=== PATIENT | female | born 1960 | race Caucasian/White ===

== ENCOUNTER 2019-01-17 12:50 | Outpatient (RCR) | payer OTHER ==
--- NOTE | 2018-12-23 13:51 | RADONC ---
RADIATION ONCOLOGY PROGRESS NOTE DATE: 12/23/2018 CHART NUMBER: [id number] PROGRESS NOTE: Mrs. 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 Her current dose is 2000 centigray of an anticipated 6000 centigray and treatments are going well. REVIEW OF SYSTEMS: She denies any nausea, vomiting, coughing, sputum production or hemoptysis. She does have a great deal of postnasal drip but also denies any odynophagia or dysphagia. Her energy level is satisfactory and she is able to maintain many day-to-day activities without any alteration of her lifestyle. Skin irritation is denied. EXAMINATION FINDINGS: The skin within the irradiated volume shows neither erythema nor desquamation. Lymphatics: No palpable peripheral lymphadenopathy is appreciated. The remainder of the physical examination is unchanged. IMPRESSION: Tolerating therapy well. PLAN: Treatments to continue.
--- NOTE | 2018-12-31 07:00 | RADONC ---
RADIATION ONCOLOGY PROGRESS NOTE DATE: 12/30/2018 CHART #: [id number] Ms. Link is presently at a dose of 3000 cGy to her right hilum and is tolerating treatments quite well at this point with no complaints related to her radiation therapy. She is having no increased difficulty swallowing or breathing. REVIEW OF SYSTEMS: The patient's review of systems is noncontributory. Denies nausea, vomiting, fevers, chills, night sweats, diplopia, headaches, anxiety or depression, anorexia, weight loss, visual disturbances, chest pain, urinary or bowel difficulties, bone pain, or neurological problems. PHYSICAL EXAMINATION: The patient's skin is in good condition with no evidence of moist or dry desquamation. The remainder of her physical exam remains unchanged. Ms. Link is tolerating treatments quite well and radiation will continue as scheduled.
--- NOTE | 2019-01-07 07:36 | RADONC ---
RADIATION ONCOLOGY PROGRESS NOTE DATE: 01/06/2019 CHART NUMBER: [id number] Ms. Link is presently at a dose of 3800 cGy to her right hilum and is tolerating treatments quite well at this point with no complaints related to her radiation therapy. She is having no increased difficulty swallowing or breathing. The patient's review of systems is noncontributory. She denies nausea, vomiting, fevers, chills, night sweats, diplopia, headaches, anxiety or depression, anorexia, weight loss, visual disturbances, chest pain, urinary or bowel difficulties, bone pain, or neurological problems. PHYSICAL EXAMINATION: The patient's skin is in good condition with no evidence of moist or dry desquamation. The remainder of her physical exam remains unchanged. Ms. Link is tolerating treatments quite well and radiation will continue as scheduled.
--- NOTE | 2019-01-14 11:40 | RADONC ---
RADIATION ONCOLOGY PROGRESS NOTE: DATE OF SERVICE: 01/13/2019 CHART NUMBER: [id number] Mrs. 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 Treatments are going relatively well and she denies major issues related to her disease or to her treatments. REVIEW OF SYSTEMS: She specifically denies any nausea, vomiting, coughing, sputum production or hemoptysis. She does experience some dysphagia with odynophagia most likely secondary to radiation related esophageal irritation. Her energy level is such that she is able to maintain most day-to-day activities. She denies any skin irritation. The remainder of the review of systems is unchanged. EXAMINATION FINDINGS: The skin within the irradiated was normal. There is no palpable, peripheral lymphadenpathy. Lungs appear to be clear. The remainder of the physical examination is unchanged. IMPRESSION: Tolerating therapy well. PLAN: Treatments to continue.
[~2019-01-17 12:50] MED LIST: ALBU83IN INH; BENZ200C70 PO; CEFT1INJ4 IV; FLUTISP; LOSA100T50 PO; MAGICMW SSP; METR0.753 TOP; METR0.7533 TOP; MSIR30TA PO; NICO14DI3 TOP; NICO21DI6 TOP; QVAR80AE8 INH; SENN-52 PO; SYNT25TA PO; ZYRTTAB8 PO
== END 2019-01-19 ==
LOC: M ONCR 12:50 → MERGE 12:50
PROVIDERS: ATTEND Radiology Radiation Oncology
DX: C34.90 Malignant neoplasm of unspecified part of unspecified bronchus or lung (principal)

== ENCOUNTER 2019-01-22 12:53 | Outpatient (RCR) | payer OTHER ==
--- NOTE | 2019-01-20 17:17 | RADONC ---
RADIATION ONCOLOGY PROGRESS NOTE DATE OF SERVICE: 01/20/2019 CHART NUMBER: [id number] Mrs. Link with a diagnosis of a small cell carcinoma involving the right lung with brain metastasis is currently receiving local regional radiotherapy to the lung and she has achieved a dose thus far of 5600 cGy of an anticipated 6000 cGy. She has only two more treatments to go to complete her entire prescribed dose of radiotherapy. She denies any symptoms related to her disease or major symptoms related to her treatment. REVIEW OF SYSTEMS: She specifically denies any nausea, vomiting, coughing, sputum production or hemoptysis. Her energy level is excellent. She is able to maintain many day-to-day activities without any significant alteration of her lifestyle. Again she does experience some minimal dysphagia and odynophagia most likely secondary to radiotherapy but this has not been a major issue for her. She is able to maintain most day-to-day activities as per usual. Skin irritation is acknowledged but it is not painful. The remainder of the review of systems is unchanged. EXAMINATION FINDINGS: The skin within the irradiated volume looks normal. There is no palpable peripheral lymphadenopathy. Lungs are clear. The remainder of the physical examination is unchanged. IMPRESSION: Tolerating therapy well. PLAN: Treatments to continue. MTDD
--- NOTE | 2019-01-24 08:33 | RADONC ---
RADIATION ONCOLOGY TREATMENT SUMMARY DATE: 01/22/2019. CHART NUMBER: [id number] DIAGNOSIS: Small cell carcinoma of the right lung with evidence of brain metastasis. STAGE: Extensive [id number] (brain). Group stage IV. ECOG PERFORMANCE STATUS: 0. PLAN OF RADIOTHERAPY: The patient underwent local regional radiotherapy to the primary lung tumor for local regional control. DATE RADIOTHERAPY STARTED: 12/09/2018 DATE RADIOTHERAPY COMPLETED: 01/22/2019 DOSE: The patient received a total of 6000 cGy administered in 30 fractions over 44 elapsed days. Prior to treatment delivery localization was accomplished upon our CT simulator where upon treatment portals were defined by the use of multiple leaf collimators. A 15 MV photon beam was employed for treatment delivery via BENGALI / RPO treatment portals. STATUS OF TUMOR: The patient's tumor neither showed evidence of local regional growth nor further distant metastatic spread during her course of radiotherapy. TOLERANCE: In general, treatments were relatively well tolerated and she denied any significant nausea, vomiting, exacerbation of coughing, sputum production or hemoptysis. She also denied significant odynophagia or dysphagia. DISPOSITION: Return to clinic in 1 month for post radiotherapy followup visit and skin check and she was advised to return to her referring physicians as per their directions and instructions. Thank you for allowing us the opportunity of participation in the management of this very leandro patient. Most sincerely, Thanh Fagan MD cc: DO Radha Hernández MD
[2019-02-11] MEDS ORDERED: AZEL1SPR3 NARES (13:17)
[2019-07-03] MEDS ORDERED: OXYB5TAB10 PO (13:26)
== END 2019-02-19 ==
LOC: M ONCR 12:53
PROVIDERS: ATTEND Radiology Radiation Oncology
DX: C34.90 Malignant neoplasm of unspecified part of unspecified bronchus or lung (principal)

== ENCOUNTER → 2019-02-11 | Outpatient (REF) | payer OTHER ==
[~2019-02-11] MED LIST changes: +AZEL1SPR3 NARES
[2019-02-11 14:33] LABS: HEMOGLOBIN A1c 6.1 %
[2019-02-11 14:50] LABS: ALBUMIN 3.4 GM/DL (3.2-5.2); ALT/SGPT 21 U/L (12-78); BILIRUBIN,TOTAL 0.3 MG/DL (0.2-1.0); BLOOD UREA NITROGEN 7 MG/DL (7-18); CALCIUM LEVEL 8.8 MG/DL (8.5-10.1); CARBON DIOXIDE LEVEL 30 MEQ/L (21-32); CHLORIDE LEVEL 101 MEQ/L (98-107); CREATININE FOR GFR 0.76 MG/DL (0.55-1.30); GLOMERULAR FILTRATION RATE > 60.0 (>51); GLUCOSE, FASTING 105 MG/DL (70-100); POTASSIUM SERUM 3.9 MEQ/L (3.5-5.1); SODIUM LEVEL 136 MEQ/L (136-145); TOTAL PROTEIN 6.7 GM/DL (6.4-8.2)
== END ==
LOC: M LAB REF 13:19
PROVIDERS: ATTEND Family Medicine
DX: E11.9 Type 2 diabetes mellitus without complications (principal)

== ENCOUNTER → 2019-02-18 | Outpatient (CLI) | payer OTHER ==
[~2019-02-18] MED LIST changes: +PROHANCE 279.3MG/ML 15ML VIAL (A9576) As Ordered ONE
--- NOTE | 2019-02-18 19:33 | REPVR ---
EXAM: MR Head Without and With Contrast EXAM DATE/TIME: 02/18/2019 6:12 PM CLINICAL HISTORY: 58 years old, female; Walking, difficulty; Prior surgery; Surgery date: 6+ months; Surgery type: Tumor removal; Patient HX: Fu from radiation patient has a HX of brain tumor/lung CA verigo unsteady balance; Additional info: Vertigo, unsteady gait TECHNIQUE: Imaging protocol: MR of the head without and with intravenous contrast. Contrast material: PROHANCE;Contrast volume: 14 ml;Contrast route: IV; COMPARISON: MRI-Brain W/O FOLL BY WITH 09/27/2018 1:24 PM FINDINGS: Brain: No acute infarct identified on the diffusion weighted imaging. There is cerebellar vermian encephalomalacia, as before. A new, small area of vasogenic edema in the lateral left cerebellar hemisphere adjacent to a 0.8 x 0.5 cm enhancing metastasis. There is an additional focal metastasis in the medial left cerebellum, image 1 series 601. No posterior fossa mass effect. A new metastasis in the posteroinferior right thalamus measuring 1.4 x 1.2 cm. A new metastasis in the superior aspect of the right thalamus measuring 1.2 x 1.1 cm. These metastases are associated with moderate adjacent vasogenic edema which extends into the capsular, subinsular and temporal lobe white matter. There is a new enhancing left frontal cortical metastasis measuring 1.0 x 0.8 cm. Periventricular T2 hyperintensity probably reflects postradiation change. A small area of right frontal lobe parenchymal gliosis related to prior ventriculostomy. There is an old right frontal calvarial yolanda hole. Ventricles: The ventricles appear mildly larger in the interval in keeping with central volume loss. Vasogenic edema associated with the posterior inferior right thalamic lesion partially effaces the temporal horn of the right lateral ventricle. Bones/joints: Prior occipital craniotomy. Soft tissues: Unremarkable. Sinuses: Normal as visualized. No acute sinusitis. Mastoid air cells: Patchy bilateral mastoid effusions probably related to radiation therapy. Orbits: Unremarkable. IMPRESSION: 1. Several new supratentorial and infratentorial brain parenchymal metastases since the prior study. 2. No evidence of acute infarct. Electronically signed by: Radha Carrizales On 02/18/2019 19:33:14 PM
== END ==
LOC: M RAD 15:51
PROVIDERS: ATTEND Internal Medicine Hematology & Oncology
DX: R42 Dizziness and giddiness (principal)
CPT/HCPCS: 70553; A9576

== ENCOUNTER → 2019-02-24 | Outpatient (CLI) | payer OTHER ==
[~2019-02-24] MED LIST changes: -PROHANCE 279.3MG/ML 15ML VIAL (A9576) As Ordered ONE
--- NOTE | 2019-03-06 12:26 | REP ---
REASON FOR EXAM: Right hilar mass seen on ultrasound exam of 05/12/2018 from [facility], which has been reviewed. Original exam date 02/24/2019, however, the prior examination for comparison has just been made available for review, which has delayed interpretation of our exam. CONTRAST: 100 mL Isovue 370. There are no other prior examinations for comparison. There is right hilar adenopathy, which measures approximately 2.6 x 1.3 x 1.5 cm. This has decreased in size compared to the prior exam. No mediastinal or left hilar adenopathy has developed. There are no pleural or pericardial effusions. The imaged upper abdomen is within normal limits and unchanged. The imaged osseous structures are stable and intact. Evaluation of the lung long show scattered asymmetric densities in the right upper lobe representing a change from the prior exam. There is a 4 mm size nodule in the lateral basal segment of the left lower lobe at the CP angle, which is unchanged. There are no additional abnormal nodules, masses, or opacities. IMPRESSION: 1. Right hilar adenopathy has improved as described above. By my measurements, this area previously measured 3.2 x 3.2 x 1.8 cm. 2. Abnormal asymmetric right upper lobe densities scattered throughout the right upper lobe and representing a change from the prior exam. The exact etiology is uncertain. This needs to be correlated clinically with appropriate followup. Neoplastic versus infectious versus other etiologies. Electronically Signed by Regis Alvarenga DO 03/06/2019 03:41 P
== END ==
LOC: M RAD 07:55
PROVIDERS: ATTEND Internal Medicine Hematology & Oncology
DX: C34.90 Malignant neoplasm of unspecified part of unspecified bronchus or lung (principal); R59.9 Enlarged lymph nodes, unspecified; R91.8 Other nonspecific abnormal finding of lung field

== ENCOUNTER → 2019-03-06 | Outpatient (CLI) | payer OTHER ==
--- NOTE | 2019-03-11 09:16 | RADONC ---
RADIATION ONCOLOGY FOLLOWUP NOTE DATE OF SERVICE: 03/06/2019 CHART NUMBER: [id number]. FOLLOWUP NOTE: Mrs. Link completed local regional radiotherapy for her right lung tumor. The treatments were completed on 01/22/2019. As you are aware, she also has brain metastasis. It is my understanding that she will be seeing the physicians at the [facility] for evaluation of stereotactic radiosurgery to approximately five lesions in the brain area. She has no other significant symptoms other than local regional weakness, especially on the right side of her body, and she ambulates with the aid of a walker. She wishes to get a scooter for more long-term walks and long-distance walks, such as to the store. She has a few respiratory problems with an occasional cough but does not have any significant shortness of breath. A recent CT scan ordered by Dr. Jj revealed the right hilar lymphadenopathy to have improved. The adenopathy previously measured 3.2 x 3.2 x 1.8 cm and now measures 2.6 x 1.3 x 1.5 cm. There are abnormal asymmetric right upper lobe densities scattered throughout the right upper lobe representing a change from the prior examination, but the etiology of these is uncertain and needs to be correlated with clinical performance, as well as appropriate radiographic followup. She will, as stated, be going to [place] for stereotactic radiosurgery of the brain, and she is feels that a PET scan will be ordered, and Dr. Jj has indicated to her that the PET scan will be ordered in the near future. REVIEW OF SYSTEMS: She denies any nausea, vomiting, significant productive cough, or chest pain. Her energy level is markedly diminished, and she has problems with gait secondary to her brain metastasis. The remainder of the review of systems is basically unchanged. EXAMINATION FINDINGS: The patient is ambulating with the aid of a walker. She is unsteady with regard to her gait and has an inclination to ask her physicians for a scooter for more lengthy walks, as she feels this would help her a great deal. She has no other on major signs, such as a skin reaction or desquamation. Her lungs are clear to auscultation and percussion. Heart: Regular without murmurs. The remainder of the physical examination is unchanged. Neurologically, she is still quite unsteady with regard to her gait with weakness more on the right than left upper and lower extremities. She also has lack of or poor coordination. IMPRESSION: The patient may have evidence of progressive disease and will be having a consultation and treatments in [place], [place], for her brain metastasis utilizing stereotactic radiosurgery. PLAN: We would like to see her back when she returns from [place], and she was instructed to return to her referring physicians as per their directions and instructions. cc: DO Radha Hernández MD [facility] HOSPITALAbigail
== END ==
LOC: M ONCR 12:49
PROVIDERS: ATTEND Radiology Radiation Oncology
DX: C34.91 Malignant neoplasm of unspecified part of right bronchus or lung (principal); C79.31 Secondary malignant neoplasm of brain

== ENCOUNTER → 2019-06-05 | Outpatient (CLI) | payer OTHER ==
[~2019-06-05] MED LIST changes: +GASTROGRAFIN SOLUTION 30ML (Q9963) As Ordered ONE; +ISOVUE-370 76% 100ML VIAL (Q9967) As Ordered ONE
--- NOTE | 2019-06-06 01:25 | REP ---
Clinical: Small cell lung cancer. Restaging. Technique: Axial contrast enhanced images from the thoracic inlet to the upper abdomen with coronal and sagittal re-formations using 100 ml Isovue 370 intravenous contrast material. Comparison: 02/24/2019. Findings: New areas of consolidation identified in the posterior right upper lobe measuring 17 mm (image 27), and scattered within the right lower lobe measuring up to 22 mm are now identified along. A new small subpleural area of density in the anterior left upper lobe (image 38) is also identified. Areas of more subtle ill-defined patchy air space disease within the anterobasilar right upper lobe appears slightly improved. No effusion. No pneumothorax. Subcarinal and right hilar lymph nodes are stable and measure up to approximately 16 mm. Thoracic aorta and pulmonary vasculature are stable/within normal limits. No cardiomegaly. Small pericardial effusion is now identified. Musculoskeletal structures are intact without focal osseous abnormality. Impression: 1. New areas of consolidation identified primarily in the right hemithorax along with small subpleural density in the anterior left upper lobe. Findings are nonspecific and would include scattered pneumonia as well as malignancy/metastatic disease. Electronically Signed by Mannie Goldsmith MD 06/06/2019 01:16 A
--- NOTE | 2019-06-06 01:37 | REP ---
Clinical: Small cell lung cancer. Restaging. Technique: Axial contrast enhanced images from the lung bases to the pubic symphysis using a oral (per protocol) and 100 ml Isovue 370 intravenous contrast material with delayed images of the abdomen as well as coronal and sagittal re-formations. Comparison: None. Findings: Liver, spleen, pancreas, gallbladder, right adrenal gland and bilateral kidneys and appear normal. The enteric system is without obstruction or acute inflammatory process. Normal terminal ileum and appendix are identified in the right lower quadrant. Pelvis demonstrates normal bladder and age-appropriate uterus/adnexa. No ascites. No adenopathy. No obvious mass lesion. Atherosclerotic changes to the aorta and vasculature without aneurysm or dissection. Musculoskeletal structures demonstrate age-related changes without focal abnormality. Impression: 1. Small subtle nodularity to the left adrenal gland represents a relatively new finding when compared to images from chest CT dated 05/12/2018. Findings require correlation as early metastatic focus cannot be excluded. 2. No further acute abdominopelvic pathology appreciated. Electronically Signed by Mannie Goldsmith MD 06/06/2019 01:28 A
== END ==
LOC: M RAD 15:13
DX: C34.91 Malignant neoplasm of unspecified part of right bronchus or lung (principal)
CPT/HCPCS: 71260; 74177; Q9963; Q9967

== ENCOUNTER → 2019-07-03 | Outpatient (CLI) | payer OTHER ==
[~2019-07-03] MED LIST changes: -GASTROGRAFIN SOLUTION 30ML (Q9963) As Ordered ONE; -ISOVUE-370 76% 100ML VIAL (Q9967) As Ordered ONE; +OXYB5TAB10 PO
--- NOTE | 2019-07-04 08:06 | RADONC ---
RADIATION ONCOLOGY CONSULTATION NOTE: DATE: 07/03/2019 CHART NUMBER: [id number] DIAGNOSIS: Small cell carcinoma. STAGE: Widely metastatic with recurrent brain metastasis. ECOG PERFORMANCE STATUS: 1 Ms. Link is a very pleasant 59-year-old white female who is well-known to our department and has had a history of multiple recurrent brain tumors. She is now presenting once again for consideration of a new course of whole brain radiation therapy for what appears to be two small new lesions, one in the frontal lobe and one in the right posterior cerebellum. HISTORY OF PRESENT ILLNESS: The patient's history of her brain lesions begin when she developed significant headaches and nausea while in [place]. She presented to an emergency room there and was discovered to have a brain mass in the cerebellum. She was referred to a local neurosurgeon who performed a craniotomy and excise the metastatic lesion which was quite large at that time. Her craniotomy was done on 05/14/2018 and pathology revealed metastatic small cell lung carcinoma. The patient subsequently underwent whole-brain radiation therapy at the [facility]. She received a dose of 3000 cGy delivered in 10 fractions of 300 cGy each via parallel opposed lateral long utilizing 6MV photon beam. The patient did well and was subsequently seen and treated to her small cell right-sided lung carcinoma with chemotherapy as well as external beam radiation therapy for a dose of 6000 cGy delivered in 30 fractions of 200 cGy each from Dec 09 2018 through 01/22/2019. Following completion of her radiation therapy in January, she did well for short period of time but was found to have multiple new brain lesions. On 04/04/2019, the patient underwent gamma knife radiosurgery to several lesions. There was a left frontal lesion, which was treated to a dose of 20 espinosa to the 50% isodose line. There was a right anterior thalamus tumor which was also treated to a dose of 20 espinosa She has grade 2 the 50% isodose line. A right posterior thalamus tumor was treated to 16, espinosa to the 50% isodose line. A left posterior cerebellar tumor was treated to 20 espinosa to the 50% isodose line and an anterior left cerebellar tumor was treated to 20 espinosa to the 50% isodose line. A repeat MRI was done on 06/16/2019 and compared with the MRI of 04/04/2019. This revealed a new 4.5 mm focal lesion seen in the right anterior lateral frontal lobe. There was also a new 7.8 mm lesion present in the right posterior cerebellum. The patient was seen in [place] and has been referred to me for discussion of more radiation to her brain. PAST MEDICAL HISTORY: The patient's past medical history is positive for diabetes, hypertension, asthma and bronchitis. SOCIAL HISTORY: The patient has smoked one pack of cigarettes per day for over 30 years and continues to do so. She does not abuse alcohol. ALLERGIES: The patient is allergic to ASPIRIN, NONSTEROIDAL STEROIDAL ANTI-INFLAMMATORIES, ERYTHROMYCIN, HYDROCODONE and OXYCODONE. FAMILY HISTORY: The patient's family history is positive for a mother with lung cancer and a sister with breast cancer. REVIEW OF SYSTEMS: The patient's review of systems is positive for some anxiety and physical limitations. She reports some weakness in arms and legs and decreased energy. She has shortness of breath. She denies nausea, vomiting, fevers, chills, night sweats, diplopia, weight loss, anorexia, bone pain. She does have some visual problems. PHYSICAL EXAMINATION: The patient is a well-developed, well-nourished female in no acute distress. HEENT exam is normocephalic, atraumatic. Extraocular movements are intact. There is no palpable cervical, supraclavicular, infraclavicular, axillary, or inguinal lymphadenopathy present. Lungs are clear to auscultation and percussion. Heart has a regular rate and rhythm. Abdomen is benign with no hepatosplenomegaly, masses, or tenderness. Skeletal examination reveals no tenderness to pressure or percussion of the bony skeleton. Extremities reveal no clubbing, cyanosis, or edema. Neurologic exam: The patient is presenting in a wheelchair today. ASSESSMENT: I had a very lengthy discussion with this patient and her family. I have made clear to her that the brain has actually reached its tolerance dose. Indeed she received 3000 cGy in large fraction sizes of 300 cGy to the entire brain. She also had a significant amount of surgery done with resection of her initial tumor. Following that five separate sites were treated with gamma knife radiosurgery with multiple intersections of these long. The 50% isodose line delivered a dose of 20 espinosa therefore signifying the 100% point was 40 espinosa. I explained to the patient that treating this again is not without risks. I am quite certain that radiation will lead to necrosis, if the patient lives long enough, especially to the areas that have been treated with gamma knife as well as the external beam treatment. I explained to her that I am willing to undertake these treatments if she so desires but she needs to be fully aware that sometime after completion of this therapy she could have significant neurological issues develop. The patient seemed unaware of this and we continue to discuss this in detail. Right now the patient says she is asymptomatic with regards to these two very small lesions. I let her know that I believe her options are as follows; one would be hospice. She is fully understanding the likelihood of achieving any type of long-term control with a limited amount of radiation we can give is unlikely. This way she could remain home with her family and enjoy quality of life for the short-term. The other would be to treat this now to a low dose of perhaps 1500 cgy and hope to keep these lesions in check for a period of time fully aware that sometime in the new , there is a likelihood of some radionecrosis and neurological problems. The third option which the patient has chosen at this time would be to follow her closely and plan on initiating radiation in the future if these lesions are growing rapidly or causing her problems. After a lengthy discussion, the patient has decided to return to us in 4 weeks following and . This way she can plan on spending the holiday season with her family without any difficulties. Once again at this time she is asymptomatic. I am ordering a new MRI to be undertaken prior to her followup visit in mid July. We can then compare that to the one from June 16 and see how rapidly these lesions are growing. At that time we can discuss whether or not she wishes to start radiation than. I made her aware that this treatment would be only for quality of life and is not curative, nor is it likely to extend her life. Once again in summary after a lengthy discussion, the patient has decided to return to us following the for a repeat MRI and then make a final decision on whether or not she wants to start at that time. I have given the patient my cell phone number and office number and let her know to call me should her condition change in all or if she changes her mind and wishes to undertake radiation sooner. Thank you for allowing us to participate in the care of this very pleasant woman. I hope we can be of some benefit to her. As always, warm regards, cc: Ras Marie, MD [facility]
== END ==
LOC: M ONCR 12:56
PROVIDERS: ATTEND Radiology Radiation Oncology
DX: C34.91 Malignant neoplasm of unspecified part of right bronchus or lung (principal); C79.31 Secondary malignant neoplasm of brain

== ENCOUNTER → 2019-07-25 | Outpatient (CLI) | payer OTHER ==
[2019-07-25 14:29] LABS: BLOOD UREA NITROGEN 6 MG/DL (7-18); CREATININE FOR GFR 0.58 MG/DL (0.55-1.30); GLOMERULAR FILTRATION RATE > 60.0 (>51)
== END ==
LOC: M LAB 13:34
PROVIDERS: ATTEND Radiology Radiation Oncology
DX: C79.31 Secondary malignant neoplasm of brain (principal)

== ENCOUNTER → 2019-07-29 | Outpatient (CLI) | payer OTHER ==
[~2019-07-29] MED LIST changes: +PROHANCE 279.3MG/ML 15ML VIAL (A9576) As Ordered ONE
--- NOTE | 2019-07-29 13:25 | REP ---
INDICATION: Metastatic disease follow-up PROCEDURE: MR brain with contrast. Multiplanar T1, T2, FLAIR, diffusion and post contrast imaging obtained. COMPARISON STUDIES: Prior study from and 06/16/2019 is reviewed. FINDINGS: A dominant lesion in the right thalamic region appears minimally increased in size, had measured approximately 21 mm in AP oblique dimension by a 22.5 mm, currently measures approximately 24.5 mm in oblique AP dimension by 22.5 mm. Coronal images evidence a second lesion within this region slightly superior, that is unchanged. There are scattered subtle punctate foci of enhancement more notable in the posterior fossa. There is developing focus of enhancement at the posterior fossae, slightly right para midline. These are grossly unchanged from previous. Additional lesions are seen, at the cortical surface of the right frontal lobe measures a couple of millimeters. There is a developing lesion along the anterior horn of the right lateral ventricle, grossly unchanged. A left frontal lobe lesion may be minimally increased in size relative to prior study. There is a significant amount of FLAIR hyperintensity that may be consistent with edema around the metastatic lesions as well as post-treatment sequelae, appears grossly stable. No evidence of restricted diffusion to suggest acute infarction. No gradient-echo susceptibility to suggest hemorrhage. No midline shift or evidence of hydrocephalous. CONCLUSION: 1. Followup study of metastatic disease to brain when compared to 06/16/2019 demonstrates minimal progression with minimal increase in size of a few previously described lesions. 2. Diffuse FLAIR hyperintensity of vasogenic edema and post-treatment change. 3. Subtle diffuse punctate foci of enhancement, greater in the posterior fossa, suggestive of diffuse micro metastases. Electronically Signed by Juan Martin MD 07/29/2019 01:16 P
== END ==
LOC: M RAD 10:46
PROVIDERS: ATTEND Radiology Radiation Oncology
DX: C79.31 Secondary malignant neoplasm of brain (principal); C34.90 Malignant neoplasm of unspecified part of unspecified bronchus or lung
CPT/HCPCS: 70553; A9576

== ENCOUNTER → 2019-08-06 | Outpatient (CLI) | payer OTHER ==
[~2019-08-06] MED LIST changes: -PROHANCE 279.3MG/ML 15ML VIAL (A9576) As Ordered ONE
--- NOTE | 2019-08-07 11:43 | RADONC ---
RADIATION ONCOLOGY FOLLOWUP NOTE DATE OF SERVICE: 08/06/2019 CHART NUMBER: [id number] DIAGNOSIS: Small cell lung carcinoma. STAGE: Widely metastatic with recurrent brain metastasis. ECOG PERFORMANCE STATUS: 1. FOLLOWUP NOTE: Ms. Link is a very pleasant 59-year-old white female who is well-known to our department and was seen by us on 07/03/2019 for discussion of repeat radiation therapy for recurrent brain metastasis. At that time, we decided to repeat her MRI and see her in followup in order to discuss the progression of disease and whether or not she wishes to restart radiation. On 07/29/2019, we repeated the MRI of the brain, which was compared to prior study of 06/16/2019. The dominant lesion in the right ophthalmic region appeared minimally increased in size. It had measured approximately 21 mm in AP, oblique dimension by 22.5 mm. Current measurement 24mm by 22.5 mm. Clearly, this is a very slight increase in one dimension. There are also slight increases in a few previously-described lesions as well. The patient presents today reporting no new symptoms or problems. She is continuing with some visual problems but they have not worsened at all. I asked the patient specifically if she wishes to initiate radiation at this time and after lengthy discussion the patient prefers to wait. The patient's physical exam remains unchanged. HEENT: Normocephalic, atraumatic. Extraocular movements are intact. There is no palpable cervical, supraclavicular, infraclavicular, axillary or inguinal lymphadenopathy present. Lungs are clear to auscultation and percussion. Heart has regular rate and rhythm. Neurologic exam is unchanged. ASSESSMENT: Once again, we are continuing to follow this patient closely. She has already received a significant amount of radiation to the brain and therefore this is not clear case. We have offered to treat this patient's brain once again and she is aware of the risks thereof. In light of the fact that she is asymptomatic at this time and overall doing well, she wishes to continue close followup. I have therefore set her up for a followup visit in 8 weeks' time. We will then get a new MRI of the brain. She has been given my cell phone number and office number. We are more than happy to start radiation at anytime if she so desires. She has been instructed to contact us should new symptoms worsen or develop. cc: DO Ganga Hernández MD MTDD
== END ==
LOC: M ONCR 13:07
PROVIDERS: ATTEND Radiology Radiation Oncology
DX: C34.91 Malignant neoplasm of unspecified part of right bronchus or lung (principal); C79.31 Secondary malignant neoplasm of brain

== ENCOUNTER → 2019-09-24 | Outpatient (CLI) | payer OTHER ==
--- NOTE | 2019-09-26 11:40 | RADONC ---
RADIATION ONCOLOGY FOLLOWUP NOTE DATE: 09/24/2019 CHART NUMBER: [id number] DIAGNOSIS: Small cell lung carcinoma. STAGE: Widely metastatic. ECOG PERFORMANCE STATUS: 4. FOLLOWUP NOTE: Ms. Link is a very pleasant 59-year-old white female with the diagnosis of multiple recurrences of brain metastasis. She was initially seen by me for discussion of retreatment to the brain on 07/03/2019. At that point she had already had whole-brain radiation followed by a craniotomies followed by multiple episodes of gamma knife radiosurgery. We had an MRI done on this patient on 07/29/2019 which only showed a minimal increased in size of her recurrent brain mets. At that time she was stable and we had planned on seeing her every 2 months for evaluation and re-copying of the brain scan. The patient presents today reporting that she is having progressive weakness especially over the last 3 weeks on the left side. The patient's review of systems is positive for physical limitations secondary to her weakness. PHYSICAL EXAMINATION: The patient has very limited ability to move the left arm or the left leg. I once again explained to the patient and we are well past tolerance limits for her brain. Further radiation undoubtedly will cause significant damage. With further discussion I offered to redo the MRI of the brain and see whether or not we have a rapidly growing lesion causing her increased weakness. I cannot at this point say if the tumors are progressing causing her increasing weakness or if this is the results of the multiple gamma knife procedures following craniotomy and whole brain radiation. The gamma knife was approximately 6 months ago and this would be the appropriate time to start seeing some significant difficulties. After offering to do an MRI on her further discussion lead to the fact that apparently she is on hospice at this point. We then went on to discuss the fact that I think hospice is the most reasonable choice and I would not remove myself from hospice. Indeed the MRI is going to add little at this point. Further radiation undoubtedly will damage the brain significantly and speed up the damage already caused by the gamma knife and whole brain radiation. I do not see a likelihood of achieving any type of palliation from such radiation. At the end of our discussion the patient and her family will go home and speak. They appear to be leaning on staying on hospice care. I informed them that there is an inpatient hospice unit which may be more beneficial to them since she is having significant mobility problems. The patient's family is having difficulty with bathroom issues. In light of the fact that she is on hospice care, I have not given this patient any further appointments in our center. If she does wish to sign off hospice we are more than glad to see her at anytime.
== END ==
LOC: M ONCR 12:43
PROVIDERS: ATTEND Radiology Radiation Oncology
DX: C34.91 Malignant neoplasm of unspecified part of right bronchus or lung (principal); C79.31 Secondary malignant neoplasm of brain